=== PATIENT | male | born 1965 | race African-American/Black ===

== ENCOUNTER 2018-09-13 02:52 | Emergency (ER) | payer MEDICAID ==
[~2018-09-13] VITALS: Ht 182.9 cm; Wt 84.0 kg
[2018-09-13 04:41] VITALS: BP 138/92
[2018-09-13] MEDS ORDERED: KETOROLAC 15MG/ML VIAL IM ONE (05:30)
== END 2018-09-13 05:36 | disposition home or self-care (01) ==
LOC: ER 02:52
DX: S16.1XXA Strain of muscle, fascia and tendon at neck level, initial encounter (principal); X50.0XXA Overexertion from strenuous movement or load, initial encounter; X50.3XXA Overexertion from repetitive movements, initial encounter; Y93.89 Activity, other specified; Y92.69 Other specified industrial and construction area as the place of occurrence of the external cause; Y99.0 Civilian activity done for income or pay
CPT/HCPCS: 96372; 99283; J1885

== ENCOUNTER 2020-01-09 00:56 | Emergency (ER) | payer MEDICAID ==
[~2020-01-09] VITALS: Ht 182.9 cm; Wt 84.0 kg
[2020-01-09] MEDS ORDERED: TRANEXAMIC ACID 1,000 MG/10 ML IV ONE (01:15)
[2020-01-09] MEDS ORDERED: TRANEXAMIC ACID 1,000 MG/10 ML TP SCH (01:30)
[2020-01-09 03:38] VITALS: BP 132/81
== END 2020-01-09 03:37 | disposition home or self-care (01) ==
LOC: ER 00:56
DX: K06.8 Other specified disorders of gingiva and edentulous alveolar ridge (principal)
CPT/HCPCS: 99281

== ENCOUNTER 2020-05-05 19:39 | Emergency (ER) | payer MEDICAID ==
[~2020-05-05] VITALS: Ht 185.4 cm; Wt 85.0 kg
[2020-05-05 20:09] VITALS: BP 117/78
== END 2020-05-05 21:20 | disposition home or self-care (01) ==
LOC: ER 19:39
DX: Z76.0 Encounter for issue of repeat prescription (principal); R06.2 Wheezing; Z91.013 Allergy to seafood
CPT/HCPCS: 99283

== ENCOUNTER 2020-05-15 13:32 | Emergency (ER) | payer MEDICAID ==
[~2020-05-15] VITALS: Ht 182.9 cm; Wt 80.0 kg
[2020-05-15 13:55] VITALS: BP 109/75
[2020-05-15] MEDS ORDERED: P50 MT (15:33)
[2020-05-15] MEDS ORDERED: ALBU05 NEB (15:33)
[2020-05-15] MEDS ORDERED: ALBU18HF2 INH (15:33)
== END 2020-05-15 14:15 | disposition left against medical advice (07) ==
LOC: ER 13:32
DX: R06.00 Dyspnea, unspecified (principal); J45.909 Unspecified asthma, uncomplicated; Z76.0 Encounter for issue of repeat prescription
CPT/HCPCS: 99281

== ENCOUNTER 2020-09-07 15:13 | Emergency (ER) | payer MEDICAID ==
[~2020-09-07] VITALS: Ht 185.4 cm; Wt 84.0 kg
[~2020-09-07 15:13] MED LIST: ALBU05 NEB; ALBU18HF2 INH; P50 MT
[2020-09-07] MEDS ORDERED: KETOROLAC 30MG/ML VIAL IM ONE (15:45)
[2020-09-07] MEDS ORDERED: NAPR-681 MT (16:22)
[2020-09-07 16:47] VITALS: BP 131/81
== END 2020-09-07 16:47 | disposition home or self-care (01) ==
LOC: ER 15:13
DX: M25.561 Pain in right knee (principal); R03.0 Elevated blood-pressure reading, without diagnosis of hypertension
CPT/HCPCS: 73562; 99283